=== PATIENT | male | born 1980 | race Caucasian/White ===

== ENCOUNTER 2024-08-05 12:28 | Outpatient (CLI) | payer MEDICAID, SELFPAY | END 2024-08-05 12:29 | disposition home or self-care (01) | PROVIDERS: PCP Family Medicine; Visit Provider Family Medicine | DX: E10.65 Type 1 diabetes mellitus with hyperglycemia (principal); Z13.220 Encounter for screening for lipoid disorders | CPT/HCPCS: 80048; 80061 ==